=== PATIENT | female | born 1990 | race Caucasian/White ===

== ENCOUNTER → 2016-12-02 | Outpatient (CLI) | payer OTHER ==
[2016-12-02 14:06] LABS: HEMOGLOBIN 11.8 gm/dl (12.3-15.3); RED BLOOD COUNT 4.27 M/UL (4.00-5.10)
== END ==
LOC: GENOP 13:16
PROVIDERS: Obstetrics & Gynecology
DX: Z01.812 Encounter for preprocedural laboratory examination (principal); O34.219 Maternal care for unspecified type scar from previous cesarean delivery; Z3A.00 Weeks of gestation of pregnancy not specified
CPT/HCPCS: 36415; 81001; 85025; J7120

== ENCOUNTER 2016-12-03 05:17 | Inpatient (IN) | payer OTHER ==
[~2016-12-03] VITALS: Ht 162.6 cm; Wt 130.2 kg
[2016-12-04 03:44] LABS: HEMOGLOBIN 9.3 gm/dl (12.3-15.3)
== END 2016-12-05 14:15 | disposition home or self-care (01) | DRG 765 ==
LOC: OB 05:17
PROVIDERS: ADMIT Obstetrics & Gynecology
PROC: 10D00Z1 Extraction of Products of Conception, Low, Open Approach (ICD-10-PCS; principal; 2016-12-03 07:30)
DX: O34.211 Maternal care for low transverse scar from previous cesarean delivery (principal); O99.411 Diseases of the circulatory system complicating pregnancy, first trimester; O99.213 Obesity complicating pregnancy, third trimester; O99.334 Smoking (tobacco) complicating childbirth; F17.210 Nicotine dependence, cigarettes, uncomplicated; Z3A.39 39 weeks gestation of pregnancy; Z37.0 Single live birth
CPT/HCPCS: 36415; 82800; 85014; 85018; C9113; J0690; J1885; J2405; J2550; J2590; J2765; J7050; J7120

== ENCOUNTER 2016-12-26 12:25 | Emergency (ER) | payer OTHER | END 2016-12-26 13:12 | disposition home or self-care (01) | LOC: ER1 12:25 | DX: K04.7 Periapical abscess without sinus (principal) | CPT/HCPCS: 99282 ==

== ENCOUNTER 2020-12-24 10:52 | Emergency (ER) | payer OTHER ==
[~2020-12-24 10:52] MED LIST: CEFUROXIME500 MG PO; LODINE CAP 300300 MG PO; NORVASC5 MG PO; ZOFRAN ODT 4 MG4 MG PO
[2020-12-24 12:19] LABS: HEMOGLOBIN 14.3 gm/dl (12.3-15.3); RED BLOOD COUNT 5.25 M/UL (4.00-5.10); WHITE BLOOD COUNT 16.3 K/UL (4.5-11.0)
[2020-12-24 12:49] LABS: BUN/CREATININE RATIO 14 (0-10)
[2020-12-24] MEDS ORDERED: BENTYL 20MG TAB20 MG PO (17:48)
[2020-12-24] MEDS ORDERED: OMNICEF 300 MG300 MG PO (17:48)
[2020-12-24] MEDS ORDERED: LODINE CAP 300300 MG PO (17:48)
[2020-12-24] MEDS ORDERED: ZOFRAN4 MG PO (17:48)
== END 2020-12-24 18:13 | disposition home or self-care (01) ==
LOC: ER1 10:52
PROVIDERS: Physician Assistant Medical
DX: R10.9 Unspecified abdominal pain (principal); R19.7 Diarrhea, unspecified; R11.0 Nausea
CPT/HCPCS: 80053; 81001; 84703; 85025; 87077; 87086; 87186; 96374; 96375; 99284; J1885; J2270; J2405; J7030; Q9967